=== PATIENT | female | born 1980 | race Two or more races ===

== ENCOUNTER 2017-12-31 01:58 | Emergency (ER) | END 2017-12-31 05:29 | disposition home or self-care (01) ==

== ENCOUNTER 2019-01-04 01:52 | Emergency (ER) | payer OTHER ==
[~2019-01-04] VITALS: Ht 167.6 cm; Wt 70.3 kg
[~2019-01-04 01:52] MED LIST: CEPH-443 PO; FAMO-96 PO; HYDR-4011 PO; MAG355OR14 PO; ONDA4TAB14 PO; ONDA4TAB8 PO
[2019-01-04 02:02] VITALS: Ht 167.6 cm; Wt 70.3 kg
--- NOTE | 2019-01-04 03:06 | ERD ---
ER Documentation Chief Complaint Chief Complaint mid epigastric pain x 5hr with n/v HPI The patient is a 38-year-old female, presenting to the ER because of epigastric abdominal pain half an hour after eating around 8 PM, had similar symptoms previously, complains of nausea but no vomiting, complains of diarrhea denies hematemesis/hematochezia. She does not smoke nor drink Past medical history: History of Helicobacter pylori gastritis Past surgical history: None ROS All systems reviewed and are negative except as per history of present illness. Medications Home Meds Active Scripts Pantoprazole* (Protonix*) 40 Mg Tablet.dr, 40 MG PO DAILY, #10 TAB Prov:TAD OCHOA MD 01/04/19 Sulfamethoxazole/Trimethoprim* (Bactrim Ds* Tablet) 1 Each Tablet, 1 TAB PO BID, #14 TAB Prov:TAD OCHOA MD 01/04/19 Cephalexin* (Keflex*) 500 Mg Capsule, 500 MG PO QID for 5 Days, CAP Prov:JESSE TORRES MD 12/31/17 Ondansetron Hcl* (Zofran*) 4 Mg Tablet, 4 MG PO Q8H PRN for NAUSEA AND/OR VOMITING, #12 TAB Prov:JESSE TORRES MD 12/31/17 Famotidine* (Pepcid*) 20 Mg Tablet, 20 MG PO BID, #30 TAB Prov:JESSE TORRES MD 12/31/17 Mag Hydrox/Al Hydrox/Simeth (Maalox Advanced Suspension) 355 Ml Oral.susp, 2 TSP PO TID for PAIN, #24 OZ Prov:JESSE TORRES MD 12/31/17 Ondansetron (Ondansetron Odt) 4 Mg Tab.rapdis, 4 MG PO Q8 PRN for NAUSEA AND/OR VOMITING, #30 TAB Prov:ROJELIO DIEGO NP 05/04/16 Hydrocodone/Acetaminophen (Malott 5-325 Tablet) 1 Each Tablet, 1 TAB PO Q6H PRN for PAIN, #20 TAB Prov:ROJELIO DIEGO NP 05/04/16 Reported Medications [none] Unknown Strength No Conflict Check 05/04/16 Allergies Allergies: Coded Allergies: No Known Allergy (Unverified , 05/04/16) PMhx/Soc Medical and Surgical Hx: pt denies Medical Hx, pt denies Surgical Hx History of Surgery: No Anesthesia Reaction: No Hx Neurological Disorder: No Hx Respiratory Disorders: No Hx Cardiac Disorders: No Hx Psychiatric Problems: No Hx Miscellaneous Medical Probl: No Hx Alcohol Use: Yes (occasionally) Hx Substance Use: No Hx Tobacco Use: No Smoking Status: Never smoker Physical Exam Vitals Vital Signs Date Temp Pulse Resp B/P (MAP) Pulse Ox O2 O2 Flow FiO2 Time Delivery Rate 01/04/19 98.3 85 16 116/75 96 02:02 (89) Physical Exam Const: No acute distress. Head: Atraumatic. Eyes: Normal Conjunctiva. ENT: Normal External Ears, Nose and Mouth. Neck: Full range of motion. No meningismus. Resp: Clear to auscultation bilaterally. Cardio: Regular rate and rhythm. Abd: Soft, non distended, normal bowel sounds, mild epigastric/right upper quadrant discomfort, no right lower quadrant/rigidity/rebound or CVA tenderness. Skin: No petechiae or rashes. Back: No midline or flank tenderness. Ext: No cyanosis, or edema. Neur: Awake and alert. No focal deficit Psych: Normal Mood and Affect. Result Diagram: 01/04/19 0350 01/04/19 0350 Results 24 hrs Laboratory Tests Test 01/04/19 03:13 01/04/19 03:48 01/04/19 03:50 POC Beta HCG, Qualitative NEGATIVE Bedside Urine pH (LAB) 7.0 Bedside Urine Protein (LAB) Negative Bedside Urine Glucose (UA) Negative Bedside Urine Ketones (LAB) Negative Bedside Urine Blood Negative Bedside Urine Nitrite (LAB) Negative Bedside Urine Leukocyte Esterase 1+ (L White Blood Count 9.5 10^3/ul Red Blood Count 4.23 10^6/ul Hemoglobin 12.5 g/dl Hematocrit 38.1 % Mean Corpuscular Volume 90.1 fl Mean Corpuscular Hemoglobin 29.6 pg Mean Corpuscular 32.8 g/dl Hemoglobin Concent Red Cell Distribution Width 11.9 % Platelet Count 302 10^3/UL Mean Platelet Volume 10.7 fl Immature Granulocytes % 0.300 % Neutrophils % 71.5 % Lymphocytes % 23.7 % Monocytes % 3.9 % Eosinophils % 0.2 % Basophils % 0.4 % Nucleated Red Blood Cells % 0.0 /100WBC Immature Granulocytes # 0.030 10^3/ul Neutrophils # 6.8 10^3/ul Lymphocytes # 2.3 10^3/ul Monocytes # 0.4 10^3/ul Eosinophils # 0.0 10^3/ul Basophils # 0.0 10^3/ul Nucleated Red Blood Cells # 0.0 10^3/ul Sodium Level 144 mmol/L Potassium Level 4.5 mmol/L Chloride Level 108 mmol/L Carbon Dioxide Level 26 mmol/L Anion Gap 10 Blood Urea Nitrogen 11 mg/dl Creatinine 0.60 mg/dl Est Glomerular Filtrat Rate mL/min > 60 mL/min Glucose Level 104 mg/dl Calcium Level 9.4 mg/dl Total Bilirubin 0.4 mg/dl Direct Bilirubin 0.00 mg/dl Indirect Bilirubin 0.4 mg/dl Aspartate Amino Transf (AST/SGOT) 20 IU/L Alanine 16 IU/L Aminotransferase (ALT/SGPT) Alkaline Phosphatase 47 IU/L Total Protein 8.2 g/dl Albumin 4.6 g/dl Globulin 3.60 g/dl Albumin/Globulin Ratio 1.27 Lipase 122 U/L Current Medications Medications Dose Sig/Sumeet Start Time Status Last (Trade) Ordered Route PRN Stop Time Admin Dose Reason Admin Sodium 1,000 ml @ Q1H ONCE 01/04/19 DC 01/04/19 Chloride 1,000 mls/hr IV 03:30 03:59 01/04/19 04:29 40 mg ONCE ONCE 01/04/19 DC 01/04/19 Pantoprazole IV 03:30 03:59 (Protonix 01/04/19 03:31 Iv) Ondansetron 4 mg ONCE STAT 01/04/19 DC 01/04/19 HCl (Zofran IV 03:29 03:59 Inj) 01/04/19 03:31 Loperamide 4 mg ONCE ONCE 01/04/19 DC 01/04/19 HCl PO 04:00 04:02 (Imodium Cap) 01/04/19 04:01 Procedures/MDM MEDICAL MAKING DECISION: The patient is a 38-year-old female, presenting with acute epigastric abdominal pain, acute cystitis, she was treated with 1 L normal saline for clinical dehydration, Protonix IV for epigastric abdominal pain, Zofran 4 mg IV for nausea and Imodium 4 mg p.o. for diarrhea with good response. Repeat abdominal exam was unremarkable, is stable for outpatient follow-up The differential diagnoses considered include but are not limited to cholelithiasis, cholecystitis, choledocholithiasis, cholangitis, pancreatitis, hepatitis, gastritis, peptic ulcer disease, gastric ulcer, appendicitis, cystitis, diverticulitis, partial small bowel obstruction. Departure Diagnosis: Primary Impression: Abdominal pain Additional Impression: Acute UTI Condition: Good Comments She was discharged with Bactrim DS and Protonix I discussed the findings with the patient. I advised the patient to follow-up with the primary physician in about 2-3 days, sooner if needed and return if any concern. Disclaimer: Inadvertent spelling and grammatical errors are likely due to EHR/dictation software use and do not reflect on the overall quality of patient care. Also, please note that the electronic time recorded on this note does not necessarily reflect the actual time of the patient encounter. TAD OCHOA MD January 04, 2019 03:06
[2019-01-04] MEDS ORDERED: ONDANSETRON 4 MG INJ IV STA (03:29)
[2019-01-04] MEDS ORDERED: SOD CHLORIDE 0.9% 1,000 ML IV ONE (03:30)
[2019-01-04] MEDS ORDERED: PANTOPRAZOLE 40 MG INJ IV ONE (03:30)
[2019-01-04] MEDS ORDERED: LOPERAMIDE 2 MG CAP PO ONE (04:00)
[2019-01-04] MEDS ORDERED: PANT40TA3 PO (05:00)
[2019-01-04] MEDS ORDERED: SULF1TAB31 PO (05:00)
[2019-01-04 05:09] VITALS: BP 123/86; PULSE 76; RESP 16
== END 2019-01-04 05:10 | disposition home or self-care (01) ==
LOC: E/R 01:52
DX: N39.0 Urinary tract infection, site not specified (principal)
CPT/HCPCS: 36415; 76705; 80053; 81003; 81025; 83690; 85025; 96374; 96375; C9113; J2405; J7030; Z7502; Z7610